=== PATIENT | female | born 1960 | race Caucasian/White ===

== ENCOUNTER 2017-03-12 19:09 | Inpatient (IN) | payer OTHER ==
[~2017-03-12] VITALS: Ht 177.8 cm; Wt 223.0 kg
[2017-03-13 06:22] VITALS: BP 126/56
[2017-03-13 07:49] VITALS: BP 130/62
[2017-03-13 11:21] VITALS: BP 120/70
[2017-03-13 16:01] VITALS: BP 136/68
[2017-03-13] MEDS ORDERED: NOVOLOG 10100 UNITS/ SC (16:16)
[2017-03-13] MEDS ORDERED: POLYETHYLENE GL17 GM PO (16:17)
[2017-03-13] MEDS ORDERED: POTASSIUM CHLO20 ME2 PO (16:18)
[2017-03-13] MEDS ORDERED: SENEXON-S TABL1 EACH PO (16:19)
[2017-03-13] MEDS ORDERED: DIOVAN320 MG PO (16:19)
[2017-03-13] MEDS ORDERED: MORPHINE SULFAT30 M2 PO (16:21)
[2017-03-13] MEDS ORDERED: BISAC-EVAC10 MG PR (16:22)
[2017-03-13] MEDS ORDERED: TYLENOL EXTRA500 MG PO (16:22)
[2017-03-13] MEDS ORDERED: BACLOFEN10 MG PO (16:25)
[2017-03-13] MEDS ORDERED: OXYCODONE HCL10 MG PO (16:25)
[2017-03-13] MEDS ORDERED: LASIX20 MG PO (16:27)
[2017-03-13] MEDS ORDERED: NEURONTIN100 MG PO (16:27)
[2017-03-13] MEDS ORDERED: GLUCOPHAGE500 MG PO (16:28)
[2017-03-13] MEDS ORDERED: PHILLIPS'400 MG/5 M PO (16:42)
[2017-03-13] MEDS ORDERED: FLEET ENEMA-AD118 ML PR (16:43)
[2017-03-13] MEDS ORDERED: DULCOLAX10 MG PR (16:50)
[2017-03-13] MEDS ORDERED: LEVEMIR FL100 UNIT/1 SC (16:52)
[2017-03-13] MEDS ORDERED: HUMALOG100 UNIT/1 SC (16:52)
[2017-03-13] MEDS ORDERED: PROAIR HFA8.5 GM IH (16:53)
[2017-03-13] MEDS ORDERED: DUONEB 2.5-0.5 M3 ML IPPB (16:54)
[2017-03-13 18:34] LABS: BASOPHIL (%) 0.4 % (0-1); EOSINOPHIL (%) 0.8 % (0-5); EOSINOPHIL COUNT 0.1 K/uL (0-0.3); HEMATOCRIT 42.1 % (36.0-46.0); HEMOGLOBIN 12.1 G/DL (11.9-15.5); IMMATURE GRANULOCYTE (%) 0.4 % (0.0-0.7); LYMPHOCYTE (%) 9.8 % (15-42); LYMPHOCYTE COUNT 0.8 K/uL (1.0-2.8); MCH 27.9 PG (29.0-34.0); MCHC 28.7 G/DL (30.0-36.0); MONOCYTE (%) 4.6 % (3-12); MONOCYTE COUNT 0.4 K/uL (0-0.8); NEUTROPHIL COUNT 6.5 K/uL (1.8-6.4); PLATELET COUNT 174 K/uL (156-360); RBC DIS.WIDTH-CV 15.9 % (11.8-14.6); RBC DIS.WIDTH-SD 56.9 % (39-53); RED BLOOD COUNT 4.34 M/uL (3.80-5.20); WHITE BLOOD COUNT 7.7 K/uL (4.1-10.2)
[2017-03-13 19:01] LABS: CHLORIDE 92 MEQ/L (99-109); CREATININE 0.5 MG/DL (0.6-1.3); GFR ESTIMATE (CALCULATED) > 59 mL/min/; GLUCOSE 237 mg/dL (70-99); POTASSIUM 4.2 MEQ/L (3.7-5.4); SODIUM 141 MEQ/L (136-147); UREA NITROGEN (BUN) 14 mg/dL (9-23)
[2017-03-13 19:03] LABS: CARBON DIOXIDE (BICARBONATE) > 40.0 MEQ/L (20-31)
[2017-03-13 19:39] VITALS: BP 132/80; BP 185/102
[2017-03-13 20:04] LABS: BASE EXCESS 23.8 mEq/L (-3 to +3); BICARBONATE 53.2 mEq/L (22-26); COMMENTS - BLOOD GASES C+A+; METHEMOGLOBIN 1.9 % (0-1.5); PCO2 82 mm Hg (35-45); PO2 55 mm Hg (80-100); SITE RR; pH 7.42 (7.35-7.45)
[2017-03-13 20:05] LABS: DEVICE HFNC; O2 FLOW 7 L/MIN; TOTAL RESP RATE 14 resp/min
[2017-03-14 00:19] VITALS: BP 140/70
[2017-03-14 03:45] VITALS: BP 139/76
[2017-03-14 07:07] VITALS: BP 107/56
[2017-03-14 11:13] VITALS: BP 141/80
[2017-03-14 15:15] VITALS: BP 144/71
[2017-03-14 19:35] VITALS: BP 126/62
[2017-03-15 00:03] VITALS: BP 113/59
[2017-03-15 04:29] VITALS: BP 110/54
[2017-03-15 07:13] VITALS: BP 123/71
[2017-03-15 11:31] VITALS: BP 143/81
[2017-03-15 15:43] VITALS: BP 165/89
[2017-03-15 19:50] VITALS: BP 164/84
[2017-03-16 04:06] VITALS: BP 156/82
[2017-03-16 06:41] LABS: CHLORIDE 89 MEQ/L (99-109); CREATININE 0.5 MG/DL (0.6-1.3); GFR ESTIMATE (CALCULATED) > 59 mL/min/; GLUCOSE 173 mg/dL (70-99); POTASSIUM 3.8 MEQ/L (3.7-5.4); SODIUM 145 MEQ/L (136-147); UREA NITROGEN (BUN) 12 mg/dL (9-23)
[2017-03-16 06:42] LABS: CARBON DIOXIDE (BICARBONATE) > 40.0 MEQ/L (20-31)
[2017-03-16 08:02] VITALS: BP 138/72
[2017-03-16 09:28] LABS: BASE EXCESS 32.3 mEq/L (-3 to +3); BICARBONATE 64.7 mEq/L (22-26); CARBOXY HGB 3.5 % (0-5); METHEMOGLOBIN 1.4 % (0-1.5); PCO2 112 mm Hg (35-45); PO2 59 mm Hg (80-100); pH 7.37 (7.35-7.45)
[2017-03-16 09:29] LABS: COMMENTS - BLOOD GASES A+C+; DEVICE NC; O2 FLOW 5 L/MIN; SITE LR; TOTAL RESP RATE 10 resp/min
[2017-03-16 11:11] VITALS: BP 153/79
[2017-03-16 15:50] VITALS: BP 153/79
[2017-03-16 20:14] VITALS: BP 158/92
[2017-03-16 23:39] VITALS: BP 169/89
[2017-03-17 04:47] VITALS: BP 175/92
[2017-03-17 05:19] VITALS: BP 156/87
[2017-03-17 07:40] VITALS: BP 144/83
[2017-03-17 08:07] LABS: BASE EXCESS 28.2 mEq/L (-3 to +3); BICARBONATE 59.3 mEq/L (22-26); CARBOXY HGB 3.3 % (0-5); METHEMOGLOBIN 1.5 % (0-1.5); PO2 66 mm Hg (80-100); pH 7.39 (7.35-7.45)
[2017-03-17 08:08] LABS: COMMENTS - BLOOD GASES A+C+; DEVICE NC; O2 FLOW 5 L/MIN; PCO2 98 mm Hg (35-45); SITE LR; TOTAL RESP RATE 18 resp/min
[2017-03-17 11:20] VITALS: BP 168/88
[2017-03-17 14:53] VITALS: BP 152/84
[2017-03-17 23:20] VITALS: BP 159/90
[2017-03-18 08:09] VITALS: BP 153/86
[2017-03-18] MEDS ORDERED: LEVOFLOXACIN750 MG PO (13:48)
[2017-03-18] MEDS ORDERED: GABAPENTIN300 MG PO (13:48)
[2017-03-18] MEDS ORDERED: ADVAIR HFA120 INHAL1 IH (13:48)
[2017-03-18] MEDS ORDERED: SKELAXIN800 MG PO (13:48)
[2017-03-18] MEDS ORDERED: AMITRIPTYLINE H10 MG PO (13:48)
[2017-03-18] MEDS ORDERED: OXYCODONE-APAP1 EACH PO (13:54)
[2017-03-18 15:44] VITALS: BP 166/82
== END 2017-03-18 19:05 | DRG 535 ==
LOC: EME → EDBD 19:09 → EME 19:09 → 3EAST 03-13 04:17 → EDOF 03-13 04:17 → ENRESERV 03-13 04:18 → 3EAST 03-13 05:53
PROVIDERS: Internal Medicine; Internal Medicine Pulmonary Disease
DX: S72.012A Unspecified intracapsular fracture of left femur, initial encounter for closed fracture (principal); W06.XXXA Fall from bed, initial encounter; E66.2 Morbid (severe) obesity with alveolar hypoventilation; J96.11 Chronic respiratory failure with hypoxia; J96.12 Chronic respiratory failure with hypercapnia; J44.0 Chronic obstructive pulmonary disease with (acute) lower respiratory infection; J18.9 Pneumonia, unspecified organism; E11.9 Type 2 diabetes mellitus without complications; G89.4 Chronic pain syndrome; I10 Essential (primary) hypertension; Z74.01 Bed confinement status; M81.0 Age-related osteoporosis without current pathological fracture; M19.90 Unspecified osteoarthritis, unspecified site; M54.42 Lumbago with sciatica, left side; Z68.45 Body mass index [BMI] 70 or greater, adult; R26.9 Unspecified abnormalities of gait and mobility; Z87.891 Personal history of nicotine dependence; I27.20 Pulmonary hypertension, unspecified; E87.4 Mixed disorder of acid-base balance
CPT/HCPCS: 36600; 71010; 73502; 73560; 73600; 73630; 80048; 82803; 82948; 85025; 90686; 93005; 93306; 93970; 94640; 94640 76; 94660; 94667; 94668; 94760; 94799; 99202; 99281; 99285; J1650; J1815; J2270; J7512

== ENCOUNTER 2017-06-21 16:19 | Inpatient (IN) | payer OTHER ==
[~2017-06-21] VITALS: Ht 177.8 cm; Wt 210.0 kg
[~2017-06-21 16:19] MED LIST: ADVAIR HFA120 INHAL1 IH; AMITRIPTYLINE H10 MG PO; BACLOFEN10 MG PO; BISAC-EVAC10 MG PR; DIOVAN320 MG PO; DULCOLAX10 MG PR; DUONEB 2.5-0.5 M3 ML IPPB; FLEET ENEMA-AD118 ML PR; GABAPENTIN300 MG PO; GLUCOPHAGE500 MG PO; HUMALOG100 UNIT/1 SC; LANTUS 3 M100 UNITS1 SC; LEVOFLOXACIN750 MG PO; MORPHINE SULFAT30 M2 PO; NEURONTIN100 MG PO; NOVOLOG 10100 UNITS/ SC; OXYCODONE HCL10 MG PO; OXYCODONE-APAP1 EACH PO; PHILLIPS'400 MG/5 M PO; POLYETHYLENE GL17 GM PO; POTASSIUM CHLO20 ME2 PO; PROAIR HFA8.5 GM IH; SENEXON-S TABL1 EACH PO; SKELAXIN800 MG PO; TYLENOL EXTRA500 MG PO
[2017-06-21 17:52] LABS: BASOPHIL (%) 0.5 % (0-1); EOSINOPHIL (%) 1.3 % (0-5); EOSINOPHIL COUNT 0.1 K/uL (0-0.3); HEMATOCRIT 38.4 % (36.0-46.0); HEMOGLOBIN 12.1 G/DL (11.9-15.5); IMMATURE GRANULOCYTE (%) 0.9 % (0.0-0.7); LYMPHOCYTE (%) 21.3 % (15-42); LYMPHOCYTE COUNT 1.7 K/uL (1.0-2.8); MCH 29.2 PG (29.0-34.0); MCHC 31.5 G/DL (30.0-36.0); MCV 92.8 FL (83-99); MONOCYTE (%) 8.3 % (3-12); MONOCYTE COUNT 0.7 K/uL (0-0.8); NEUTROPHIL (%) 67.7 % (45-76); NEUTROPHIL COUNT 5.3 K/uL (1.8-6.4); PLATELET COUNT 221 K/uL (156-360); RBC DIS.WIDTH-CV 16.1 % (11.8-14.6); RED BLOOD COUNT 4.14 M/uL (3.80-5.20); WHITE BLOOD COUNT 7.8 K/uL (4.1-10.2)
[2017-06-21 17:55] LABS: CHLORIDE 88 mEq/L (99-109); POTASSIUM 4.3 mEq/L (3.7-5.4); SODIUM 140 mEq/L (136-147)
[2017-06-21 17:57] LABS: GLUCOSE 230 mg/dL (70-99)
[2017-06-21 18:01] LABS: CREATININE 0.9 mg/dL (0.6-1.3); GFR ESTIMATE (CALCULATED) > 59 mL/min/
[2017-06-21 18:02] LABS: UREA NITROGEN (BUN) 37 mg/dL (9-23)
[2017-06-21 18:08] LABS: TROP-I INTERPRETATION NEGATIVE; TROPONIN-I 0.02 ng/mL (0.0-0.30)
[2017-06-21 18:11] LABS: CARBON DIOXIDE (BICARBONATE) > 40.0 mEq/L (20-31)
[2017-06-21] MEDS ORDERED: DOXYCYCLINE HY100 MG PO (19:26)
[2017-06-21] MEDS ORDERED: GABAPENTIN400 MG PO (21:46)
[2017-06-21] MEDS ORDERED: DUONEB 2.5-0.5 M3 ML AEROSOL (21:47)
[2017-06-21] MEDS ORDERED: HYDRALAZINE HCL25 MG PO (21:47)
[2017-06-21] MEDS ORDERED: ASPERCREME1 EACH TP (21:48)
[2017-06-21] MEDS ORDERED: CYMBALTA30 MG PO (21:49)
[2017-06-21] MEDS ORDERED: BACLOFEN10 MG PO (21:49)
[2017-06-21] MEDS ORDERED: LITE COAT ASPI325 M1 PO (21:49)
[2017-06-21] MEDS ORDERED: LASIX80 MG PO (21:50)
[2017-06-21] MEDS ORDERED: METOLAZONE5 MG PO (21:51)
[2017-06-21] MEDS ORDERED: NALOXONE H0.4 MG/12 IV (21:53)
[2017-06-21] MEDS ORDERED: ZINC OXIDE56.7 GM TP ×2 (21:54→21:55)
[2017-06-21] MEDS ORDERED: ZGUARD TP (21:57)
[2017-06-21] MEDS ORDERED: BETAMETHASONE TP (21:57)
[2017-06-22 07:36] LABS: BASOPHIL (%) 0.6 % (0-1); BASOPHIL COUNT 0.1 K/uL (0-0.1); EOSINOPHIL (%) 2.3 % (0-5); EOSINOPHIL COUNT 0.2 K/uL (0-0.3); HEMATOCRIT 40.6 % (36.0-46.0); HEMOGLOBIN 12.4 G/DL (11.9-15.5); IMMATURE GRANULOCYTE (%) 0.9 % (0.0-0.7); LYMPHOCYTE (%) 27.1 % (15-42); LYMPHOCYTE COUNT 2.1 K/uL (1.0-2.8); MCHC 30.5 G/DL (30.0-36.0); MCV 94.9 FL (83-99); MONOCYTE COUNT 0.6 K/uL (0-0.8); NEUTROPHIL (%) 61.1 % (45-76); NEUTROPHIL COUNT 4.8 K/uL (1.8-6.4); PLATELET COUNT 207 K/uL (156-360); RBC DIS.WIDTH-CV 16.4 % (11.8-14.6); RBC DIS.WIDTH-SD 56.7 % (39-53); RED BLOOD COUNT 4.28 M/uL (3.80-5.20); WHITE BLOOD COUNT 7.9 K/uL (4.1-10.2)
[2017-06-22 08:22] LABS: ALBUMIN 3.8 G/DL (3.2-4.8); ALKALINE PHOSPHATASE 66 IU/L (3-129); ALT (GPT) 15 IU/L (3-49); AST (GOT) 12 IU/L (2-34); CHLORIDE 91 MEQ/L (99-109); CREATININE 0.8 MG/DL (0.6-1.3); GFR ESTIMATE (CALCULATED) > 59 mL/min/; GLUCOSE 222 mg/dL (70-99); POTASSIUM 3.8 MEQ/L (3.7-5.4); SODIUM 140 MEQ/L (136-147); TOTAL BILIRUBIN 0.3 MG/DL (0.0-1.0); TOTAL PROTEIN 6.5 G/DL (6.4-8.3); UREA NITROGEN (BUN) 27 mg/dL (9-23)
[2017-06-22 08:23] LABS: CARBON DIOXIDE (BICARBONATE) > 40.0 MEQ/L (20-31)
[2017-06-22 08:46] LABS: BASE EXCESS 23.3 mEq/L (-3 to +3); BICARBONATE 53.8 mEq/L (22-26); METHEMOGLOBIN 0.9 % (0-1.5); PO2 67 mm Hg (80-100); pH 7.38 (7.35-7.45)
[2017-06-22 08:47] LABS: COMMENTS - BLOOD GASES A+C+; DEVICE NC; O2 FLOW 6 L/MIN; PCO2 91 mm Hg (35-45); SITE RR
[2017-06-22 18:00] VITALS: BP 129/82
[2017-06-22 18:40] LABS: TROP-I INTERPRETATION NEGATIVE; TROPONIN-I 0.03 ng/mL (0.0-0.30)
[2017-06-22 19:54] VITALS: BP 129/75
[2017-06-22 23:13] LABS: TROP-I INTERPRETATION NEGATIVE; TROPONIN-I 0.01 ng/mL (0.0-0.30)
[2017-06-23 00:01] VITALS: BP 133/71
[2017-06-23 03:53] VITALS: BP 143/77
[2017-06-23 06:43] LABS: BASOPHIL (%) 0.5 % (0-1); EOSINOPHIL (%) 1.9 % (0-5); EOSINOPHIL COUNT 0.2 K/uL (0-0.3); HEMATOCRIT 40.9 % (36.0-46.0); HEMOGLOBIN 11.9 G/DL (11.9-15.5); IMMATURE GRANULOCYTE (%) 0.8 % (0.0-0.7); LYMPHOCYTE (%) 21.7 % (15-42); LYMPHOCYTE COUNT 1.7 K/uL (1.0-2.8); MCH 27.9 PG (29.0-34.0); MCHC 29.1 G/DL (30.0-36.0); MONOCYTE (%) 7.5 % (3-12); MONOCYTE COUNT 0.6 K/uL (0-0.8); NEUTROPHIL (%) 67.6 % (45-76); NEUTROPHIL COUNT 5.3 K/uL (1.8-6.4); PLATELET COUNT 213 K/uL (156-360); RBC DIS.WIDTH-CV 16.3 % (11.8-14.6); RBC DIS.WIDTH-SD 57.5 % (39-53); RED BLOOD COUNT 4.26 M/uL (3.80-5.20); WHITE BLOOD COUNT 7.8 K/uL (4.1-10.2)
[2017-06-23 07:01] LABS: TROP-I INTERPRETATION NEGATIVE; TROPONIN-I 0.03 ng/mL (0.0-0.30)
[2017-06-23 07:10] LABS: ALBUMIN 3.4 G/DL (3.2-4.8); ALKALINE PHOSPHATASE 69 IU/L (3-129); ALT (GPT) 13 IU/L (3-49); AST (GOT) 12 IU/L (2-34); CHLORIDE 91 MEQ/L (99-109); CREATININE 0.9 MG/DL (0.6-1.3); GFR ESTIMATE (CALCULATED) > 59 mL/min/; GLUCOSE 294 mg/dL (70-99); POTASSIUM 4.2 MEQ/L (3.7-5.4); SODIUM 141 MEQ/L (136-147); TOTAL PROTEIN 6.1 G/DL (6.4-8.3); UREA NITROGEN (BUN) 25 mg/dL (9-23)
[2017-06-23 07:20] LABS: CARBON DIOXIDE (BICARBONATE) > 40.0 MEQ/L (20-31); TOTAL BILIRUBIN 0.4 MG/DL (0.0-1.0)
[2017-06-23 07:30] VITALS: BP 102/50
[2017-06-23 11:58] VITALS: BP 147/73
[2017-06-23 16:20] VITALS: BP 130/71
== END 2017-06-23 19:41 | DRG 189 ==
LOC: EME → EDBD 16:19 → EME 16:19 → EDOF 22:24 → ENRESERV 22:26 → 2EAST 06-22 09:11 → EDOF 06-22 09:11 → ENRESERV 06-22 12:38 → 5WEST 06-22 13:47 → ENRESERV 06-22 14:34 → EDOF 06-22 14:41 → ENRESERV 06-22 14:49 → 2EAST 06-22 17:54
PROVIDERS: Emergency Medicine; Hospitalist; Internal Medicine; Nurse Practitioner Adult Health
PROC: 5A09357 Assistance with Respiratory Ventilation, Less than 24 Consecutive Hours, Continuous Positive Airway Pressure (ICD-10-PCS; principal; 2017-06-22)
DX: J96.21 Acute and chronic respiratory failure with hypoxia (principal); J96.22 Acute and chronic respiratory failure with hypercapnia; R55 Syncope and collapse; E66.2 Morbid (severe) obesity with alveolar hypoventilation; G47.31 Primary central sleep apnea; J44.9 Chronic obstructive pulmonary disease, unspecified; E87.2 Acidosis; E86.0 Dehydration; I11.0 Hypertensive heart disease with heart failure; I50.32 Chronic diastolic (congestive) heart failure; E11.9 Type 2 diabetes mellitus without complications; E78.5 Hyperlipidemia, unspecified; G89.4 Chronic pain syndrome; I25.10 Atherosclerotic heart disease of native coronary artery without angina pectoris; I27.20 Pulmonary hypertension, unspecified; G43.909 Migraine, unspecified, not intractable, without status migrainosus; Z68.44 Body mass index [BMI] 60.0-69.9, adult; Z74.01 Bed confinement status; Z79.82 Long term (current) use of aspirin; Z86.73 Personal history of transient ischemic attack (TIA), and cerebral infarction without residual deficits; Z79.4 Long term (current) use of insulin; Z87.891 Personal history of nicotine dependence; Z99.81 Dependence on supplemental oxygen
CPT/HCPCS: 36415; 36600; 71045; 78582; 80048; 80048 91; 80053; 80076; 81003; 82803; 82948; 84484; 85025; 85379; 93005; 93880; 94640; 94640 76; 94660; 94799; 99202; A9540; A9567; G0378; J1650; J1815; J2060; J7030; J7040

== ENCOUNTER 2017-07-02 21:19 | Inpatient (IN) | payer OTHER ==
[~2017-07-02] VITALS: Ht 177.8 cm; Wt 205.0 kg
[~2017-07-02 21:19] MED LIST changes: +ASPERCREME1 EACH TP; +BETAMETHASONE TP; +CYMBALTA30 MG PO; +DOXYCYCLINE HY100 MG PO; +DUONEB 2.5-0.5 M3 ML AEROSOL; +GABAPENTIN400 MG PO; +HYDRALAZINE HCL25 MG PO; +LASIX80 MG PO; +LITE COAT ASPI325 M1 PO; +METOLAZONE5 MG PO; +NALOXONE H0.4 MG/12 IV; +ZGUARD TP; +ZINC OXIDE56.7 GM TP
[2017-07-02 23:02] LABS: HEMATOCRIT 40.7 % (36.0-46.0); HEMOGLOBIN 12.2 G/DL (11.9-15.5); MCH 29.7 PG (29.0-34.0); PLATELET COUNT 232 K/uL (156-360); RBC DIS.WIDTH-CV 15.8 % (11.8-14.6); RBC DIS.WIDTH-SD 57.1 % (39-53); RED BLOOD COUNT 4.11 M/uL (3.80-5.20); WHITE BLOOD COUNT 9.4 K/uL (4.1-10.2)
[2017-07-02 23:04] LABS: CARBON DIOXIDE (BICARBONATE) > 40.0 MEQ/L (20-31); VENOUS PCO2 93 mm Hg (41-51)
[2017-07-02 23:14] LABS: ALBUMIN 3.9 g/dL (3.2-4.8); CHLORIDE 92 mEq/L (99-109); POTASSIUM 4.4 mEq/L (3.7-5.4); SODIUM 139 mEq/L (136-147)
[2017-07-02 23:17] LABS: GLUCOSE 179 mg/dL (70-99); TOTAL PROTEIN 7.2 g/dL (6.4-8.3)
[2017-07-02 23:19] LABS: TOTAL BILIRUBIN 0.4 mg/dL (0.0-1.0)
[2017-07-02 23:20] LABS: ALKALINE PHOSPHATASE 87 IU/L (3-129); GFR ESTIMATE (CALCULATED) 25 mL/min/
[2017-07-02 23:21] LABS: CREATININE 2.2 mg/dL (0.6-1.3)
[2017-07-02 23:22] LABS: AST (GOT) 17 IU/L (2-34)
[2017-07-02 23:23] LABS: ALT (GPT) 20 IU/L (3-49); UREA NITROGEN (BUN) 57 mg/dL (9-23)
[2017-07-02 23:24] LABS: LIPASE 24 U/L (1.0-51.0)
[2017-07-02 23:26] LABS: TROP-I INTERPRETATION NEGATIVE; TROPONIN-I 0.04 ng/mL (0.0-0.30)
[2017-07-02 23:57] LABS: BICARBONATE 39.3 mEq/L (22-26); CARBOXY HGB 2.6 % (0-5); COMMENTS - BLOOD GASES A+C+; DEVICE NC; O2 FLOW 5 L/MIN; PCO2 78 mm Hg (35-45); PO2 69 mm Hg (80-100); SITE RR; TOTAL RESP RATE 24 resp/min; pH 7.31 (7.35-7.45)
[2017-07-03] VITALS (12 sets, daily range): BP systolic 82–183; BP diastolic 39–101
[2017-07-03 07:12] LABS: CHLORIDE 94 MEQ/L (99-109); CREATININE 1.8 MG/DL (0.6-1.3); GFR ESTIMATE (CALCULATED) 31 mL/min/; GLUCOSE 248 mg/dL (70-99); POTASSIUM 4.7 MEQ/L (3.7-5.4); SODIUM 138 MEQ/L (136-147); UREA NITROGEN (BUN) 57 mg/dL (9-23)
[2017-07-03 10:05] LABS: BASE EXCESS 9.2 mEq/L (-3 to +3); BICARBONATE 39.8 mEq/L (22-26); CARBOXY HGB 2.1 % (0-5); METHEMOGLOBIN 1.6 % (0-1.5); PO2 56 mm Hg (80-100)
[2017-07-03 10:06] LABS: PCO2 95 mm Hg (35-45); SITE LR
[2017-07-03 10:07] LABS: COMMENTS - BLOOD GASES A+C+; DEVICE HFNC; O2 FLOW 12 L/MIN; pH 7.23 (7.35-7.45)
[2017-07-03 12:20] LABS: BASE EXCESS 8.3 mEq/L (-3 to +3); BICARBONATE 39.5 mEq/L (22-26); CARBOXY HGB 1.9 % (0-5); METHEMOGLOBIN 1.3 % (0-1.5); PCO2 101 mm Hg (35-45); PO2 111 mm Hg (80-100)
[2017-07-03 12:21] LABS: COMMENTS - BLOOD GASES A+C+; DEVICE HFNC; O2 FLOW 15 L/MIN; SITE LR; TOTAL RESP RATE 15 resp/min
[2017-07-03 14:39] LABS: APPEARANCE CLOUDY ((CLEAR)); BILIRUBIN NEGATIVE; BLOOD NEGATIVE; COLOR YELLOW ((YELLOW)); GLUCOSE (STRIP) NEGATIVE; KETONES NEGATIVE; LEUKOCYTES MODERATE; NITRITE NEGATIVE; PROTEIN (STRIP) NEGATIVE; SPECIFIC GRAVITY 1.013 (1.000-1.030); UROBILINOGEN 0.2 MG/DL (0.2-1.0)
[2017-07-03 14:43] LABS: BACTERIA NONE SEEN /HPF; EPITHELIAL CELLS NONE SEEN /HPF; MUCUS NONE SEEN /LPF; RED BLOOD CELLS 0-5 /HPF (0-5); UCUL ADDED? NO; WHITE BLOOD CELLS 0-5 /HPF (0-5)
[2017-07-03 16:06] LABS: BASE EXCESS 10.9 mEq/L (-3 to +3); BICARBONATE 38.7 mEq/L (22-26); COMMENTS - BLOOD GASES A+C+; METHEMOGLOBIN 1.6 % (0-1.5); PCO2 67 mm Hg (35-45); PO2 61 mm Hg (80-100); SITE RR; pH 7.37 (7.35-7.45)
[2017-07-03 16:07] LABS: DEVICE VENT; FI02 100 %; MECHANICAL RATE 16 resp/min; MODE AC; PEEP 5 CM/H20; TIDAL VOLUME 500 ML; TOTAL RESP RATE 16 resp/min
[2017-07-03 16:22] LABS: BASOPHIL (%) 0.2 % (0-1); EOSINOPHIL COUNT 0.1 K/uL (0-0.3); HEMATOCRIT 40.2 % (36.0-46.0); HEMOGLOBIN 11.9 G/DL (11.9-15.5); IMMATURE GRANULOCYTE (%) 0.6 % (0.0-0.7); LYMPHOCYTE (%) 23.4 % (15-42); LYMPHOCYTE COUNT 2.5 K/uL (1.0-2.8); MCHC 29.6 G/DL (30.0-36.0); MONOCYTE (%) 4.8 % (3-12); MONOCYTE COUNT 0.5 K/uL (0-0.8); NEUTROPHIL COUNT 7.4 K/uL (1.8-6.4); PLATELET COUNT 186 K/uL (156-360); RBC DIS.WIDTH-CV 15.9 % (11.8-14.6); RBC DIS.WIDTH-SD 57.3 % (39-53); WHITE BLOOD COUNT 10.5 K/uL (4.1-10.2)
[2017-07-03 16:37] LABS: ALBUMIN 3.6 G/DL (3.2-4.8); CHLORIDE 95 MEQ/L (99-109); POTASSIUM 5.4 MEQ/L (3.7-5.4); SODIUM 136 MEQ/L (136-147); TOTAL BILIRUBIN 0.4 MG/DL (0.0-1.0)
[2017-07-03 16:43] LABS: ALKALINE PHOSPHATASE 72 IU/L (3-129); ALT (GPT) 15 IU/L (3-49); AST (GOT) 19 IU/L (2-34); CREATININE 1.7 MG/DL (0.6-1.3); GFR ESTIMATE (CALCULATED) 33 mL/min/; GLUCOSE 178 mg/dL (70-99); TOTAL PROTEIN 6.7 G/DL (6.4-8.3); UREA NITROGEN (BUN) 56 mg/dL (9-23)
[2017-07-03 17:08] LABS: INTER. NORMALIZED RATIO 1.1
[2017-07-03 17:11] LABS: PTT 31.8 SEC (25-37)
[2017-07-04] VITALS (18 sets, daily range): BP systolic 106–181; BP diastolic 54–106
[2017-07-04 01:56] LABS: INTER. NORMALIZED RATIO 1.1
[2017-07-04 01:59] LABS: PTT 35.8 SEC (25-37)
[2017-07-04 05:58] LABS: BASOPHIL (%) 0.2 % (0-1); EOSINOPHIL (%) 0 % (0-5); HEMATOCRIT 36.5 % (36.0-46.0); HEMOGLOBIN 11.2 G/DL (11.9-15.5); IMMATURE GRANULOCYTE (%) 0.7 % (0.0-0.7); LYMPHOCYTE (%) 12.7 % (15-42); LYMPHOCYTE COUNT 1.2 K/uL (1.0-2.8); MCH 28.6 PG (29.0-34.0); MCHC 30.7 G/DL (30.0-36.0); MONOCYTE (%) 2.7 % (3-12); MONOCYTE COUNT 0.3 K/uL (0-0.8); NEUTROPHIL (%) 83.7 % (45-76); NEUTROPHIL COUNT 7.7 K/uL (1.8-6.4); PLATELET COUNT 239 K/uL (156-360); RBC DIS.WIDTH-CV 15.8 % (11.8-14.6); RBC DIS.WIDTH-SD 54.1 % (39-53); RED BLOOD COUNT 3.91 M/uL (3.80-5.20); WHITE BLOOD COUNT 9.1 K/uL (4.1-10.2)
[2017-07-04 06:09] LABS: MCV 93.4 FL (83-99)
[2017-07-04 06:22] LABS: CHLORIDE 97 MEQ/L (99-109); GFR ESTIMATE (CALCULATED) > 59 mL/min/; MAGNESIUM 2.1 mg/dl (1.3-2.7); PHOSPHORUS 1.7 mg/dL (2.5-4.9); POTASSIUM 4.8 MEQ/L (3.7-5.4); SODIUM 140 MEQ/L (136-147); UREA NITROGEN (BUN) 38 mg/dL (9-23)
[2017-07-04 06:23] LABS: GLUCOSE 286 mg/dL (70-99)
[2017-07-04 08:50] LABS: INTER. NORMALIZED RATIO 1.1
[2017-07-04 08:59] LABS: PTT 56.5 SEC (25-37)
[2017-07-04 12:04] LABS: BASE EXCESS 13.5 mEq/L (-3 to +3); BICARBONATE 39.6 mEq/L (22-26); CARBOXY HGB 1.6 % (0-5); METHEMOGLOBIN 1.4 % (0-1.5); PO2 54 mm Hg (80-100); pH 7.45 (7.35-7.45)
[2017-07-04 12:05] LABS: COMMENTS - BLOOD GASES C+; DEVICE VENT; FI02 100 %; MECHANICAL RATE 16 resp/min; MODE AC; PCO2 57 mm Hg (35-45); SITE RR; TOTAL RESP RATE 16 resp/min
[2017-07-04 12:06] LABS: PEEP 5 CM/H20; TIDAL VOLUME 500 ML
[2017-07-04 16:56] LABS: BASOPHIL (%) 0.4 % (0-1); EOSINOPHIL (%) 0.1 % (0-5); HEMATOCRIT 35.3 % (36.0-46.0); HEMOGLOBIN 10.7 G/DL (11.9-15.5); LYMPHOCYTE (%) 14.6 % (15-42); MCH 28.5 PG (29.0-34.0); MCHC 30.3 G/DL (30.0-36.0); MCV 93.9 FL (83-99); MONOCYTE (%) 5.5 % (3-12); MONOCYTE COUNT 0.4 K/uL (0-0.8); NEUTROPHIL (%) 78.4 % (45-76); NEUTROPHIL COUNT 5.6 K/uL (1.8-6.4); PLATELET COUNT 212 K/uL (156-360); RBC DIS.WIDTH-CV 15.9 % (11.8-14.6); RBC DIS.WIDTH-SD 54.3 % (39-53); RED BLOOD COUNT 3.76 M/uL (3.80-5.20); WHITE BLOOD COUNT 7.1 K/uL (4.1-10.2)
[2017-07-04 19:58] LABS: HEMATOCRIT 33.4 % (36.0-46.0); HEMOGLOBIN 10.6 G/DL (11.9-15.5); MCV 93.3 FL (83-99)
[2017-07-05] VITALS (20 sets, daily range): BP systolic 120–179; BP diastolic 65–114
[2017-07-05 00:30] LABS: HEMATOCRIT 35.5 % (36.0-46.0); HEMOGLOBIN 11.1 G/DL (11.9-15.5); MCV 93.7 FL (83-99)
[2017-07-05 05:27] LABS: BASE EXCESS 11.1 mEq/L (-3 to +3); BICARBONATE 36.8 mEq/L (22-26); CARBOXY HGB 1.5 % (0-5); METHEMOGLOBIN 1.2 % (0-1.5); PCO2 53 mm Hg (35-45); PO2 54 mm Hg (80-100); SITE LR; pH 7.45 (7.35-7.45)
[2017-07-05 05:28] LABS: COMMENTS - BLOOD GASES C+; DEVICE VENT; FI02 80 %; MECHANICAL RATE 16 resp/min; MODE ACVC; PEEP 8 CM/H20; TIDAL VOLUME 500 ML; TOTAL RESP RATE 16 resp/min
[2017-07-05 06:08] LABS: BASOPHIL (%) 0.5 % (0-1); EOSINOPHIL (%) 0.2 % (0-5); HEMATOCRIT 34.8 % (36.0-46.0); HEMOGLOBIN 10.9 G/DL (11.9-15.5); IMMATURE GRANULOCYTE (%) 1.1 % (0.0-0.7); LYMPHOCYTE (%) 16.9 % (15-42); MCH 29.5 PG (29.0-34.0); MCHC 31.3 G/DL (30.0-36.0); MCV 94.3 FL (83-99); MONOCYTE (%) 6.5 % (3-12); MONOCYTE COUNT 0.4 K/uL (0-0.8); NEUTROPHIL (%) 74.8 % (45-76); NEUTROPHIL COUNT 4.6 K/uL (1.8-6.4); PLATELET COUNT 217 K/uL (156-360); RBC DIS.WIDTH-CV 16.1 % (11.8-14.6); RBC DIS.WIDTH-SD 54.9 % (39-53); RED BLOOD COUNT 3.69 M/uL (3.80-5.20); WHITE BLOOD COUNT 6.2 K/uL (4.1-10.2)
[2017-07-05 06:35] LABS: ALBUMIN 3.1 G/DL (3.2-4.8); ALKALINE PHOSPHATASE 68 IU/L (3-129); ALT (GPT) 21 IU/L (3-49); AST (GOT) 20 IU/L (2-34); CHLORIDE 100 MEQ/L (99-109); CREATININE 0.7 MG/DL (0.6-1.3); GFR ESTIMATE (CALCULATED) > 59 mL/min/; GLUCOSE 237 mg/dL (70-99); SODIUM 142 MEQ/L (136-147); TOTAL BILIRUBIN 0.4 MG/DL (0.0-1.0); TOTAL PROTEIN 6.1 G/DL (6.4-8.3); UREA NITROGEN (BUN) 25 mg/dL (9-23)
[2017-07-05 06:40] LABS: PHOSPHORUS 3.1 mg/dL (2.5-4.9)
[2017-07-05 10:30] LABS: HEMATOCRIT 35.8 % (36.0-46.0)
[2017-07-05 13:01] LABS: HEMATOCRIT 34.7 % (36.0-46.0); HEMOGLOBIN 10.8 G/DL (11.9-15.5); MCV 94.8 FL (83-99)
[2017-07-05 15:47] LABS: HEMATOCRIT 35.1 % (36.0-46.0); HEMOGLOBIN 10.7 G/DL (11.9-15.5); MCV 94.1 FL (83-99)
[2017-07-05 19:54] LABS: HEMATOCRIT 34.8 % (36.0-46.0); HEMOGLOBIN 10.7 G/DL (11.9-15.5); MCV 94.3 FL (83-99)
[2017-07-06] VITALS (21 sets, daily range): BP systolic 103–170; BP diastolic 67–113
[2017-07-06 00:47] LABS: HEMATOCRIT 37.1 % (36.0-46.0); HEMOGLOBIN 11.6 G/DL (11.9-15.5); MCV 93.9 FL (83-99)
[2017-07-06 05:02] LABS: HEMATOCRIT 36.7 % (36.0-46.0); HEMOGLOBIN 11.4 G/DL (11.9-15.5); MCV 95.3 FL (83-99)
[2017-07-06 05:28] LABS: ALBUMIN 3.3 g/dL (3.2-4.8); SODIUM 141 mEq/L (136-147)
[2017-07-06 05:30] LABS: GLUCOSE 262 mg/dL (70-99); MAGNESIUM 2.1 mg/dL (1.3-2.7)
[2017-07-06 05:33] LABS: CHLORIDE 102 mEq/L (99-109); TOTAL BILIRUBIN 0.3 mg/dL (0.0-1.0); TOTAL PROTEIN 5.8 g/dL (6.4-8.3)
[2017-07-06 05:34] LABS: ALKALINE PHOSPHATASE 73 IU/L (3-129); CREATININE 0.8 mg/dL (0.6-1.3); GFR ESTIMATE (CALCULATED) > 59 mL/min/
[2017-07-06 05:35] LABS: PHOSPHORUS 3.1 mg/dL (2.5-4.9); UREA NITROGEN (BUN) 21 mg/dL (9-23)
[2017-07-06 05:37] LABS: ALT (GPT) 38 IU/L (3-49)
[2017-07-06 05:41] LABS: AST (GOT) 27 IU/L (2-34)
[2017-07-06 06:26] LABS: TRIGLYCERIDES 204 MG/DL (Normal: <150)
[2017-07-06 10:49] LABS: BASE EXCESS 7.1 mEq/L (-3 to +3); CARBOXY HGB 1.5 % (0-5); METHEMOGLOBIN 1.1 % (0-1.5); PCO2 52 mm Hg (35-45); PO2 72 mm Hg (80-100); pH 7.41 (7.35-7.45)
[2017-07-06 10:50] LABS: COMMENTS - BLOOD GASES A+C+; DEVICE VENT; FI02 100 %; MECHANICAL RATE 16 resp/min; MODE AC/VC; PEEP 10 CM/H20; SITE LR; TIDAL VOLUME 500 ML; TOTAL RESP RATE 16 resp/min
[2017-07-06 13:32] LABS: HEMATOCRIT 38.9 % (36.0-46.0); HEMOGLOBIN 11.9 G/DL (11.9-15.5); MCV 96.3 FL (83-99)
[2017-07-06 17:54] LABS: HEMATOCRIT 37.6 % (36.0-46.0); HEMOGLOBIN 11.5 G/DL (11.9-15.5); MCV 96.2 FL (83-99)
[2017-07-07] VITALS (24 sets, daily range): BP systolic 111–176; BP diastolic 59–97
[2017-07-07 01:58] LABS: BASOPHIL (%) 0.4 % (0-1); EOSINOPHIL (%) 0.1 % (0-5); HEMATOCRIT 34.9 % (36.0-46.0); HEMOGLOBIN 11.1 G/DL (11.9-15.5); IMMATURE GRANULOCYTE (%) 1.3 % (0.0-0.7); LYMPHOCYTE (%) 5.6 % (15-42); LYMPHOCYTE COUNT 0.6 K/uL (1.0-2.8); MCH 29.8 PG (29.0-34.0); MCHC 31.8 G/DL (30.0-36.0); MCV 93.8 FL (83-99); MONOCYTE (%) 4.1 % (3-12); MONOCYTE COUNT 0.5 K/uL (0-0.8); NEUTROPHIL (%) 88.5 % (45-76); NEUTROPHIL COUNT 9.9 K/uL (1.8-6.4); PLATELET COUNT 212 K/uL (156-360); RBC DIS.WIDTH-CV 16.4 % (11.8-14.6); RBC DIS.WIDTH-SD 55.8 % (39-53); RED BLOOD COUNT 3.72 M/uL (3.80-5.20); WHITE BLOOD COUNT 11.2 K/uL (4.1-10.2)
[2017-07-07 02:01] LABS: HEMATOCRIT 34.7 % (36.0-46.0); HEMOGLOBIN 11.2 G/DL (11.9-15.5); MCV 93.3 FL (83-99)
[2017-07-07 02:19] LABS: ALBUMIN 3.4 g/dL (3.2-4.8); CHLORIDE 102 mEq/L (99-109); POTASSIUM 4.7 mEq/L (3.7-5.4); SODIUM 143 mEq/L (136-147)
[2017-07-07 02:20] LABS: MAGNESIUM 1.8 mg/dL (1.3-2.7)
[2017-07-07 02:22] LABS: GLUCOSE 224 mg/dL (70-99); TOTAL PROTEIN 5.8 g/dL (6.4-8.3)
[2017-07-07 02:24] LABS: TOTAL BILIRUBIN 0.3 mg/dL (0.0-1.0)
[2017-07-07 02:25] LABS: ALKALINE PHOSPHATASE 71 IU/L (3-129)
[2017-07-07 02:26] LABS: CREATININE 0.7 mg/dL (0.6-1.3); GFR ESTIMATE (CALCULATED) > 59 mL/min/
[2017-07-07 02:27] LABS: AST (GOT) 19 IU/L (2-34); UREA NITROGEN (BUN) 15 mg/dL (9-23)
[2017-07-07 02:28] LABS: ALT (GPT) 40 IU/L (3-49)
[2017-07-07 05:24] LABS: BASE EXCESS 7.6 mEq/L (-3 to +3); BICARBONATE 33.6 mEq/L (22-26); CARBOXY HGB 1.1 % (0-5); DEVICE VENT; METHEMOGLOBIN 1.5 % (0-1.5); PCO2 53 mm Hg (35-45); PO2 64 mm Hg (80-100); SITE RR; pH 7.41 (7.35-7.45)
[2017-07-07 05:25] LABS: FI02 90 %; MECHANICAL RATE 16 resp/min; MODE AC; PEEP 10 CM/H20; TIDAL VOLUME 500 ML; TOTAL RESP RATE 16 resp/min
[2017-07-07 09:42] LABS: HEMATOCRIT 37.7 % (36.0-46.0); HEMOGLOBIN 11.6 G/DL (11.9-15.5); MCV 94.3 FL (83-99)
[2017-07-07 13:35] LABS: COMMENTS - BLOOD GASES A+C+; SITE LR
[2017-07-07 13:36] LABS: CARBOXY HGB 1.6 % (0-5); DEVICE VENT; FI02 100 %; MECHANICAL RATE 16 resp/min; METHEMOGLOBIN 1.3 % (0-1.5); MODE AC/VC; PCO2 51 mm Hg (35-45); PEEP 12 CM/H20; PO2 54 mm Hg (80-100); TIDAL VOLUME 500 ML; TOTAL RESP RATE 16 resp/min; pH 7.42 (7.35-7.45)
[2017-07-07 13:37] LABS: BASE EXCESS 7.4 mEq/L (-3 to +3); BICARBONATE 33.1 mEq/L (22-26)
[2017-07-07 18:19] LABS: HEMATOCRIT 35.3 % (36.0-46.0); HEMOGLOBIN 10.9 G/DL (11.9-15.5); MCV 94.6 FL (83-99)
[2017-07-07 21:42] LABS: HEMATOCRIT 34.5 % (36.0-46.0); HEMOGLOBIN 10.8 G/DL (11.9-15.5)
[2017-07-08] VITALS (23 sets, daily range): BP systolic 116–176; BP diastolic 68–97
[2017-07-08 04:37] LABS: BASOPHIL (%) 0.3 % (0-1); EOSINOPHIL (%) 0.4 % (0-5); HEMATOCRIT 33.9 % (36.0-46.0); HEMOGLOBIN 10.5 G/DL (11.9-15.5); IMMATURE GRANULOCYTE (%) 1.5 % (0.0-0.7); LYMPHOCYTE (%) 6.9 % (15-42); LYMPHOCYTE COUNT 0.7 K/uL (1.0-2.8); MCH 29.5 PG (29.0-34.0); MCV 95.2 FL (83-99); MONOCYTE COUNT 0.5 K/uL (0-0.8); NEUTROPHIL (%) 85.9 % (45-76); PLATELET COUNT 183 K/uL (156-360); RBC DIS.WIDTH-CV 16.3 % (11.8-14.6); RBC DIS.WIDTH-SD 57.4 % (39-53); RED BLOOD COUNT 3.56 M/uL (3.80-5.20); WHITE BLOOD COUNT 10.5 K/uL (4.1-10.2)
[2017-07-08 06:31] LABS: ALBUMIN 3.1 g/dL (3.2-4.8); CHLORIDE 105 mEq/L (99-109); POTASSIUM 4.6 mEq/L (3.7-5.4); SODIUM 141 mEq/L (136-147)
[2017-07-08 06:33] LABS: GLUCOSE 194 mg/dL (70-99); TOTAL PROTEIN 5.4 g/dL (6.4-8.3)
[2017-07-08 06:37] LABS: ALKALINE PHOSPHATASE 67 IU/L (3-129); CREATININE 0.7 mg/dL (0.6-1.3); GFR ESTIMATE (CALCULATED) > 59 mL/min/; PHOSPHORUS 3.6 mg/dL (2.5-4.9)
[2017-07-08 06:38] LABS: AST (GOT) 22 IU/L (2-34); UREA NITROGEN (BUN) 13 mg/dL (9-23)
[2017-07-08 06:40] LABS: ALT (GPT) 39 IU/L (3-49)
[2017-07-08 06:49] LABS: TOTAL BILIRUBIN 0.4 mg/dL (0.0-1.0)
[2017-07-09] VITALS (20 sets, daily range): BP systolic 125–161; BP diastolic 67–92
[2017-07-09 06:00] LABS: HEMOGLOBIN 10.1 G/DL (11.9-15.5); MCH 29.2 PG (29.0-34.0); MCHC 30.6 G/DL (30.0-36.0); MCV 95.4 FL (83-99); PLATELET COUNT 157 K/uL (156-360); RBC DIS.WIDTH-CV 16.4 % (11.8-14.6); RBC DIS.WIDTH-SD 57.6 % (39-53); RED BLOOD COUNT 3.46 M/uL (3.80-5.20); WHITE BLOOD COUNT 10.4 K/uL (4.1-10.2)
[2017-07-09 06:25] LABS: CHLORIDE 103 MEQ/L (99-109); CREATININE 0.5 MG/DL (0.6-1.3); GFR ESTIMATE (CALCULATED) > 59 mL/min/; GLUCOSE 217 mg/dL (70-99); MAGNESIUM 1.9 mg/dl (1.3-2.7); PHOSPHORUS 3.4 mg/dL (2.5-4.9); POTASSIUM 4.2 MEQ/L (3.7-5.4); SODIUM 141 MEQ/L (136-147); UREA NITROGEN (BUN) 14 mg/dL (9-23)
[2017-07-09 18:48] LABS: CHLORIDE 100 MEQ/L (99-109); CREATININE 0.6 MG/DL (0.6-1.3); GFR ESTIMATE (CALCULATED) > 59 mL/min/; GLUCOSE 246 mg/dL (70-99); POTASSIUM 3.9 MEQ/L (3.7-5.4); SODIUM 137 MEQ/L (136-147); UREA NITROGEN (BUN) 17 mg/dL (9-23)
[2017-07-10] VITALS (23 sets, daily range): BP systolic 113–196; BP diastolic 72–114
[2017-07-10 01:07] LABS: BASE EXCESS 6.7 mEq/L (-3 to +3); BICARBONATE 34.2 mEq/L (22-26); CARBOXY HGB 1.7 % (0-5); COMMENTS - BLOOD GASES A+C+; DEVICE VENT; FI02 100 %; METHEMOGLOBIN 0.8 % (0-1.5); PCO2 62 mm Hg (35-45); PO2 56 mm Hg (80-100); SITE RR; pH 7.35 (7.35-7.45)
[2017-07-10 01:08] LABS: MECHANICAL RATE 20 resp/min; MODE AC/VC; PEEP 14 CM/H20; TIDAL VOLUME 500 ML; TOTAL RESP RATE 20 resp/min
[2017-07-10 06:21] LABS: HEMATOCRIT 34.2 % (36.0-46.0); HEMOGLOBIN 10.6 G/DL (11.9-15.5); MCH 29.2 PG (29.0-34.0); MCV 94.2 FL (83-99); PLATELET COUNT 169 K/uL (156-360); RBC DIS.WIDTH-SD 55.7 % (39-53); RED BLOOD COUNT 3.63 M/uL (3.80-5.20); WHITE BLOOD COUNT 8.6 K/uL (4.1-10.2)
[2017-07-10 06:27] LABS: INTER. NORMALIZED RATIO 1.2
[2017-07-10 06:29] LABS: PTT 57.2 SEC (25-37)
[2017-07-10 08:11] LABS: CHLORIDE 99 MEQ/L (99-109); CREATININE 0.6 MG/DL (0.6-1.3); GFR ESTIMATE (CALCULATED) > 59 mL/min/; GLUCOSE 337 mg/dL (70-99); SODIUM 139 MEQ/L (136-147); UREA NITROGEN (BUN) 19 mg/dL (9-23)
[2017-07-11] VITALS (19 sets, daily range): BP systolic 103–172; BP diastolic 61–108
[2017-07-11 05:26] LABS: BASOPHIL (%) 0.7 % (0-1); BASOPHIL COUNT 0.1 K/uL (0-0.1); EOSINOPHIL (%) 0.7 % (0-5); EOSINOPHIL COUNT 0.1 K/uL (0-0.3); HEMATOCRIT 36.6 % (36.0-46.0); HEMOGLOBIN 11.5 G/DL (11.9-15.5); IMMATURE GRANULOCYTE (%) 3.7 % (0.0-0.7); LYMPHOCYTE (%) 13.8 % (15-42); LYMPHOCYTE COUNT 1.7 K/uL (1.0-2.8); MCH 28.6 PG (29.0-34.0); MCHC 31.4 G/DL (30.0-36.0); MONOCYTE (%) 6.9 % (3-12); MONOCYTE COUNT 0.8 K/uL (0-0.8); NEUTROPHIL (%) 74.2 % (45-76); NEUTROPHIL COUNT 8.9 K/uL (1.8-6.4); PLATELET COUNT 205 K/uL (156-360); RBC DIS.WIDTH-CV 16.3 % (11.8-14.6); RBC DIS.WIDTH-SD 54.4 % (39-53); RED BLOOD COUNT 4.02 M/uL (3.80-5.20)
[2017-07-11 07:06] LABS: ALBUMIN 2.9 G/DL (3.2-4.8); ALKALINE PHOSPHATASE 59 IU/L (3-129); ALT (GPT) 24 IU/L (3-49); AST (GOT) 11 IU/L (2-34); CHLORIDE 98 MEQ/L (99-109); CREATININE 0.7 MG/DL (0.6-1.3); GFR ESTIMATE (CALCULATED) > 59 mL/min/; GLUCOSE 182 mg/dL (70-99); MAGNESIUM 1.8 mg/dl (1.3-2.7); PHOSPHORUS 3.4 mg/dL (2.5-4.9); POTASSIUM 3.5 MEQ/L (3.7-5.4); SODIUM 138 MEQ/L (136-147); TOTAL BILIRUBIN 0.4 MG/DL (0.0-1.0); TOTAL PROTEIN 5.6 G/DL (6.4-8.3); UREA NITROGEN (BUN) 22 mg/dL (9-23)
[2017-07-11 09:22] LABS: CREATINE KINASE 194 IU/L (1-294); HDL CHOLESTEROL 32 MG/DL (Desirable>=50); LDL CHOLESTEROL 123 mg/dL (Desirable<100); NON-HDL CHOLESTEROL 196 mg/dL (Desirable<160); TOTAL CHOLESTEROL 228 mg/dL (Desirable<200); TRIGLYCERIDES 365 MG/DL (Normal: <150)
[2017-07-11 10:50] LABS: BASE EXCESS 11.2 mEq/L (-3 to +3); BICARBONATE 32.6 mEq/L (22-26); CARBOXY HGB 1.6 % (0-5); METHEMOGLOBIN 1.7 % (0-1.5); PO2 54 mm Hg (80-100)
[2017-07-11 10:53] LABS: PCO2 31 mm Hg (35-45); pH 7.63 (7.35-7.45)
[2017-07-11 10:54] LABS: COMMENTS - BLOOD GASES A+C+; DEVICE VENT; FI02 100 %; MECHANICAL RATE 30 resp/min; MODE AC/VC; PEEP 22 CM/H20; SITE LR; TIDAL VOLUME 600 ML; TOTAL RESP RATE 30 resp/min
[2017-07-12] VITALS (24 sets, daily range): BP systolic 92–151; BP diastolic 56–85
[2017-07-12 04:47] LABS: BASOPHIL (%) 0.7 % (0-1); BASOPHIL COUNT 0.1 K/uL (0-0.1); EOSINOPHIL (%) 1.7 % (0-5); EOSINOPHIL COUNT 0.2 K/uL (0-0.3); HEMOGLOBIN 11.8 G/DL (11.9-15.5); IMMATURE GRANULOCYTE (%) 3.8 % (0.0-0.7); LYMPHOCYTE (%) 14.5 % (15-42); LYMPHOCYTE COUNT 1.9 K/uL (1.0-2.8); MCH 29.5 PG (29.0-34.0); MCHC 32.8 G/DL (30.0-36.0); MONOCYTE (%) 7.7 % (3-12); NEUTROPHIL (%) 71.6 % (45-76); NEUTROPHIL COUNT 9.5 K/uL (1.8-6.4); PLATELET COUNT 188 K/uL (156-360); RBC DIS.WIDTH-CV 16.5 % (11.8-14.6); RBC DIS.WIDTH-SD 54.4 % (39-53); WHITE BLOOD COUNT 13.3 K/uL (4.1-10.2)
[2017-07-12 04:56] LABS: CHLORIDE 102 mEq/L (99-109); POTASSIUM 3.5 mEq/L (3.7-5.4); SODIUM 141 mEq/L (136-147)
[2017-07-12 04:59] LABS: GLUCOSE 97 mg/dL (70-99); TOTAL PROTEIN 5.4 g/dL (6.4-8.3)
[2017-07-12 05:02] LABS: ALKALINE PHOSPHATASE 67 IU/L (3-129); CREATININE 0.8 mg/dL (0.6-1.3); GFR ESTIMATE (CALCULATED) > 59 mL/min/; PHOSPHORUS 3.9 mg/dL (2.5-4.9)
[2017-07-12 05:03] LABS: UREA NITROGEN (BUN) 25 mg/dL (9-23)
[2017-07-12 05:04] LABS: AST (GOT) 17 IU/L (2-34); TOTAL BILIRUBIN 0.7 mg/dL (0.0-1.0)
[2017-07-12 05:05] LABS: ALT (GPT) 23 IU/L (3-49)
[2017-07-12 06:15] LABS: BASE EXCESS 7.4 mEq/L (-3 to +3); BICARBONATE 27.5 mEq/L (22-26); CARBOXY HGB 2.2 % (0-5); METHEMOGLOBIN 0.9 % (0-1.5)
[2017-07-12 06:17] LABS: COMMENTS - BLOOD GASES C+; DEVICE VENT; PCO2 25 mm Hg (35-45); PO2 65 mm Hg (80-100); SITE LR; pH 7.65 (7.35-7.45)
[2017-07-12 06:18] LABS: FI02 100 %; MECHANICAL RATE 30 resp/min; MODE BILEVEL 40/20; PRESSURE CONTROL VENTILATION 40 CM H20; TOTAL RESP RATE 30 resp/min
[2017-07-13] VITALS (24 sets, daily range): BP systolic 93–165; BP diastolic 52–87
[2017-07-13 05:30] LABS: BASE EXCESS 2.8 mEq/L (-3 to +3); BICARBONATE 25.7 mEq/L (22-26); CARBOXY HGB 1.7 % (0-5); COMMENTS - BLOOD GASES NA.C+; METHEMOGLOBIN 1.3 % (0-1.5); PCO2 33 mm Hg (35-45); PO2 75 mm Hg (80-100); SITE LR
[2017-07-13 05:31] LABS: DEVICE 980; MECHANICAL RATE 25 resp/min; MODE BILEVEL 38/20; PEEP 20 CM/H20; PRESSURE CONTROL VENTILATION 38 CM H20; TOTAL RESP RATE 25 resp/min
[2017-07-13 06:33] LABS: BASOPHIL (%) 0.7 % (0-1); BASOPHIL COUNT 0.1 K/uL (0-0.1); EOSINOPHIL (%) 1.3 % (0-5); EOSINOPHIL COUNT 0.2 K/uL (0-0.3); HEMATOCRIT 35.4 % (36.0-46.0); IMMATURE GRANULOCYTE (%) 3.3 % (0.0-0.7); LYMPHOCYTE COUNT 1.4 K/uL (1.0-2.8); MCH 28.6 PG (29.0-34.0); MCHC 31.1 G/DL (30.0-36.0); MCV 92.2 FL (83-99); MONOCYTE (%) 6.5 % (3-12); MONOCYTE COUNT 0.9 K/uL (0-0.8); NEUTROPHIL (%) 78.2 % (45-76); NEUTROPHIL COUNT 10.6 K/uL (1.8-6.4); PLATELET COUNT 177 K/uL (156-360); RBC DIS.WIDTH-CV 16.8 % (11.8-14.6); RBC DIS.WIDTH-SD 56.6 % (39-53); RED BLOOD COUNT 3.84 M/uL (3.80-5.20); WHITE BLOOD COUNT 13.6 K/uL (4.1-10.2)
[2017-07-13 06:58] LABS: ALBUMIN 2.6 G/DL (3.2-4.8); ALKALINE PHOSPHATASE 80 IU/L (3-129); ALT (GPT) 24 IU/L (3-49); CHLORIDE 101 MEQ/L (99-109); GFR ESTIMATE (CALCULATED) > 59 mL/min/; POTASSIUM 3.7 MEQ/L (3.7-5.4); SODIUM 139 MEQ/L (136-147); TOTAL PROTEIN 5.4 G/DL (6.4-8.3); UREA NITROGEN (BUN) 24 mg/dL (9-23)
[2017-07-13 07:01] LABS: AST (GOT) 19 IU/L (2-34); GLUCOSE 162 mg/dL (70-99); TOTAL BILIRUBIN 0.9 MG/DL (0.0-1.0)
[2017-07-13 11:16] LABS: BASE EXCESS 1.1 mEq/L (-3 to +3); BICARBONATE 23.1 mEq/L (22-26); CARBOXY HGB 2.1 % (0-5); METHEMOGLOBIN 1.4 % (0-1.5); PCO2 29 mm Hg (35-45); pH 7.51 (7.35-7.45)
[2017-07-13 11:17] LABS: COMMENTS - BLOOD GASES A+C+; DEVICE VENT; FI02 100 %; MECHANICAL RATE 17 resp/min; MODE BILEVEL; PO2 57 mm Hg (80-100); SITE RRADIAL; TOTAL RESP RATE 17 resp/min
[2017-07-13 11:18] LABS: CONTINUOUS POS AIRWAY PRESSURE 0 cm H2O; PEEP 34 CM/H20; PRES. SUPPORT 5 CM/H2O
[2017-07-13 11:42] LABS: APPEARANCE CLOUDY ((CLEAR)); BILIRUBIN NEGATIVE; BLOOD NEGATIVE; COLOR AMBER ((YELLOW)); GLUCOSE (STRIP) NEGATIVE; KETONES 5; LEUKOCYTES MODERATE; NITRITE NEGATIVE; PROTEIN (STRIP) NEGATIVE; SPECIFIC GRAVITY 1.018 (1.000-1.030); UROBILINOGEN 0.2 MG/DL (0.2-1.0)
[2017-07-13 13:40] LABS: RED BLOOD CELLS 0-5 /HPF (0-5)
[2017-07-13 13:41] LABS: BACTERIA 2+ /HPF; EPITHELIAL CELLS 1+ /HPF; MUCUS NONE SEEN /LPF; OTHER YEAST W/HYPHAE
[2017-07-13 16:28] LABS: BICARBONATE 26.5 mEq/L (22-26); PCO2 39 mm Hg (35-45); PO2 51 mm Hg (80-100); SITE LR; pH 7.44 (7.35-7.45)
[2017-07-13 16:29] LABS: COMMENTS - BLOOD GASES C+; DEVICE VENT; FI02 100 %; MECHANICAL RATE 13 resp/min; MODE BILEVEL PS; TOTAL RESP RATE 19 resp/min
[2017-07-13 16:31] LABS: PRESSURE CONTROL VENTILATION 34 CM H20
[2017-07-13 16:32] LABS: PEEP 0 CM/H20; PRES. SUPPORT 5 CM/H2O
[2017-07-14] VITALS (24 sets, daily range): BP systolic 99–155; BP diastolic 61–93
[2017-07-14 05:47] LABS: BICARBONATE 25.3 mEq/L (22-26); CARBOXY HGB 1.5 % (0-5); METHEMOGLOBIN 1.1 % (0-1.5); PCO2 34 mm Hg (35-45); PO2 70 mm Hg (80-100); SITE LR; pH 7.48 (7.35-7.45)
[2017-07-14 05:48] LABS: DEVICE 980; FI02 100 %; INSPIRATORY/EXPIRATORY RATIO 6.64:1.0 RATIO; MECHANICAL RATE 13 resp/min; MODE BILEVEL; PEEP 0 CM/H20; PRES. SUPPORT 5 CM/H2O; PRESSURE CONTROL VENTILATION 34 CM H20; TOTAL RESP RATE 13 resp/min
[2017-07-14 08:13] LABS: BASOPHIL (%) 0.3 % (0-1); EOSINOPHIL (%) 0 % (0-5); HEMATOCRIT 32.9 % (36.0-46.0); HEMOGLOBIN 10.4 G/DL (11.9-15.5); IMMATURE GRANULOCYTE (%) 3.1 % (0.0-0.7); LYMPHOCYTE (%) 6.8 % (15-42); LYMPHOCYTE COUNT 0.8 K/uL (1.0-2.8); MCH 29.4 PG (29.0-34.0); MCHC 31.6 G/DL (30.0-36.0); MCV 92.9 FL (83-99); MONOCYTE (%) 3.9 % (3-12); MONOCYTE COUNT 0.5 K/uL (0-0.8); NEUTROPHIL (%) 85.9 % (45-76); PLATELET COUNT 182 K/uL (156-360); RBC DIS.WIDTH-CV 16.6 % (11.8-14.6); RED BLOOD COUNT 3.54 M/uL (3.80-5.20); WHITE BLOOD COUNT 11.7 K/uL (4.1-10.2)
[2017-07-14 09:03] LABS: CHLORIDE 100 MEQ/L (99-109); CREATININE 0.8 MG/DL (0.6-1.3); GFR ESTIMATE (CALCULATED) > 59 mL/min/; GLUCOSE 235 mg/dL (70-99); PHOSPHORUS 4.5 mg/dL (2.5-4.9); POTASSIUM 4.2 MEQ/L (3.7-5.4); SODIUM 138 MEQ/L (136-147); UREA NITROGEN (BUN) 31 mg/dL (9-23)
[2017-07-14 09:08] LABS: MAGNESIUM 2.2 mg/dl (1.3-2.7)
[2017-07-15] VITALS (23 sets, daily range): BP systolic 103–169; BP diastolic 59–112
[2017-07-15 07:32] LABS: BASOPHIL (%) 0.2 % (0-1); EOSINOPHIL (%) 0.1 % (0-5); HEMATOCRIT 32.9 % (36.0-46.0); HEMOGLOBIN 10.4 G/DL (11.9-15.5); LYMPHOCYTE (%) 6.9 % (15-42); LYMPHOCYTE COUNT 0.8 K/uL (1.0-2.8); MCH 29.2 PG (29.0-34.0); MCHC 31.6 G/DL (30.0-36.0); MCV 92.4 FL (83-99); MONOCYTE (%) 4.9 % (3-12); MONOCYTE COUNT 0.6 K/uL (0-0.8); NEUTROPHIL (%) 85.9 % (45-76); NEUTROPHIL COUNT 9.7 K/uL (1.8-6.4); PLATELET COUNT 218 K/uL (156-360); RBC DIS.WIDTH-CV 16.2 % (11.8-14.6); RBC DIS.WIDTH-SD 54.7 % (39-53); RED BLOOD COUNT 3.56 M/uL (3.80-5.20); WHITE BLOOD COUNT 11.2 K/uL (4.1-10.2)
[2017-07-15 10:07] LABS: CHLORIDE 100 MEQ/L (99-109); CREATININE 0.8 MG/DL (0.6-1.3); GFR ESTIMATE (CALCULATED) > 59 mL/min/; GLUCOSE 244 mg/dL (70-99); MAGNESIUM 2.2 mg/dl (1.3-2.7); PHOSPHORUS 2.8 mg/dL (2.5-4.9); POTASSIUM 3.4 MEQ/L (3.7-5.4); SODIUM 141 MEQ/L (136-147); UREA NITROGEN (BUN) 38 mg/dL (9-23)
[2017-07-15 10:20] LABS: COMMENTS - BLOOD GASES A+C+; DEVICE VENT; FI02 100 %; MECHANICAL RATE 13 resp/min; MODE BILEVEL; PRESSURE CONTROL VENTILATION 34 CM H20; SITE LR; TOTAL RESP RATE 13 resp/min
[2017-07-15 10:21] LABS: INSPIRATION TIME 6.64 seconds; INSPIRATORY/EXPIRATORY RATIO 6.8:1 RATIO; PCO2 35 mm Hg (35-45); PEEP 0 CM/H20; PO2 63 mm Hg (80-100); pH 7.52 (7.35-7.45)
[2017-07-15 10:22] LABS: BASE EXCESS 5.6 mEq/L (-3 to +3); BICARBONATE 28.6 mEq/L (22-26); CARBOXY HGB 1.4 % (0-5); METHEMOGLOBIN 1.3 % (0-1.5)
[2017-07-15 13:32] LABS: BASE EXCESS 4.4 mEq/L (-3 to +3); BICARBONATE 28.4 mEq/L (22-26); CARBOXY HGB 1.7 % (0-5); COMMENTS - BLOOD GASES A+C+; DEVICE VENT; FI02 100 %; METHEMOGLOBIN 1.6 % (0-1.5); MODE BILEVEL; PCO2 39 mm Hg (35-45); PO2 64 mm Hg (80-100); SITE LR; pH 7.47 (7.35-7.45)
[2017-07-15 13:33] LABS: MECHANICAL RATE 13 resp/min; PRES. SUPPORT 5 CM/H2O; PRESSURE CONTROL VENTILATION 38 CM H20; TOTAL RESP RATE 15 resp/min
[2017-07-15 13:34] LABS: PRES. SUPPORT 5 CM/H2O
[2017-07-15 18:22] LABS: BASE EXCESS 6.5 mEq/L (-3 to +3); BICARBONATE 29.1 mEq/L (22-26); CARBOXY HGB 1.9 % (0-5); METHEMOGLOBIN 1.3 % (0-1.5); PCO2 34 mm Hg (35-45); PO2 71 mm Hg (80-100); SITE LR; pH 7.54 (7.35-7.45)
[2017-07-15 18:23] LABS: COMMENTS - BLOOD GASES A+C+; DEVICE VENT; FI02 100 %; MECHANICAL RATE 13 resp/min; MODE BILEVEL; PRES. SUPPORT 5 CM/H2O; PRESSURE CONTROL VENTILATION 38 CM H20; TOTAL RESP RATE 13 resp/min
[2017-07-16] VITALS (23 sets, daily range): BP systolic 11–143; BP diastolic 66–94
[2017-07-16 06:21] LABS: BASOPHIL (%) 0.2 % (0-1); EOSINOPHIL (%) 0 % (0-5); HEMATOCRIT 34.1 % (36.0-46.0); HEMOGLOBIN 10.8 G/DL (11.9-15.5); LYMPHOCYTE COUNT 0.8 K/uL (1.0-2.8); MCHC 31.7 G/DL (30.0-36.0); MCV 91.7 FL (83-99); MONOCYTE (%) 6.4 % (3-12); MONOCYTE COUNT 0.8 K/uL (0-0.8); NEUTROPHIL (%) 84.4 % (45-76); NEUTROPHIL COUNT 10.1 K/uL (1.8-6.4); PLATELET COUNT 216 K/uL (156-360); RBC DIS.WIDTH-CV 16.4 % (11.8-14.6); RBC DIS.WIDTH-SD 54.8 % (39-53); RED BLOOD COUNT 3.72 M/uL (3.80-5.20)
[2017-07-16 06:45] LABS: CHLORIDE 98 MEQ/L (99-109); CREATININE 0.9 MG/DL (0.6-1.3); GFR ESTIMATE (CALCULATED) > 59 mL/min/; GLUCOSE 297 mg/dL (70-99); MAGNESIUM 2.2 mg/dl (1.3-2.7); PHOSPHORUS 3.3 mg/dL (2.5-4.9); POTASSIUM 3.7 MEQ/L (3.7-5.4); SODIUM 139 MEQ/L (136-147); UREA NITROGEN (BUN) 51 mg/dL (9-23); VANCOMYCIN, TROUGH 15.1 MCG/ML (10-20)
[2017-07-16 18:08] LABS: BASE EXCESS 6.1 mEq/L (-3 to +3); BICARBONATE 29.6 mEq/L (22-26); CARBOXY HGB 1.6 % (0-5); METHEMOGLOBIN 1.5 % (0-1.5); PCO2 38 mm Hg (35-45); PO2 79 mm Hg (80-100)
[2017-07-16 18:09] LABS: COMMENTS - BLOOD GASES A+C+; DEVICE VENT; FI02 100 %; MECHANICAL RATE 13 resp/min; MODE BILEVEL; SITE LR; TOTAL RESP RATE 13 resp/min
[2017-07-16 18:10] LABS: PRES. SUPPORT 5 CM/H2O; PRESSURE CONTROL VENTILATION 38 CM H20
[2017-07-17] VITALS (24 sets, daily range): BP systolic 85–159; BP diastolic 54–98
[2017-07-17 06:12] LABS: BASOPHIL (%) 0.2 % (0-1); EOSINOPHIL (%) 0.1 % (0-5); HEMATOCRIT 33.8 % (36.0-46.0); HEMOGLOBIN 10.8 G/DL (11.9-15.5); IMMATURE GRANULOCYTE (%) 1.7 % (0.0-0.7); LYMPHOCYTE (%) 5.8 % (15-42); LYMPHOCYTE COUNT 0.7 K/uL (1.0-2.8); MCH 29.3 PG (29.0-34.0); MCV 91.6 FL (83-99); MONOCYTE COUNT 0.6 K/uL (0-0.8); NEUTROPHIL (%) 87.2 % (45-76); NEUTROPHIL COUNT 10.7 K/uL (1.8-6.4); PLATELET COUNT 214 K/uL (156-360); RBC DIS.WIDTH-CV 16.5 % (11.8-14.6); RBC DIS.WIDTH-SD 55.3 % (39-53); RED BLOOD COUNT 3.69 M/uL (3.80-5.20); WHITE BLOOD COUNT 12.3 K/uL (4.1-10.2)
[2017-07-17 07:39] LABS: CHLORIDE 101 MEQ/L (99-109); CREATININE 0.9 MG/DL (0.6-1.3); GFR ESTIMATE (CALCULATED) > 59 mL/min/; GLUCOSE 360 mg/dL (70-99); MAGNESIUM 2.3 mg/dl (1.3-2.7); PHOSPHORUS 3.7 mg/dL (2.5-4.9); POTASSIUM 4.5 MEQ/L (3.7-5.4); SODIUM 142 MEQ/L (136-147); UREA NITROGEN (BUN) 60 mg/dL (9-23)
[2017-07-18] VITALS (11 sets, daily range): BP systolic 78–148; BP diastolic 49–92
[2017-07-18 02:07] LABS: INTER. NORMALIZED RATIO 1.6
[2017-07-18 02:10] LABS: PTT 107.2 SEC (25-37)
[2017-07-18 05:34] LABS: BASE EXCESS 7.2 mEq/L (-3 to +3); BICARBONATE 29.5 mEq/L (22-26); CARBOXY HGB 1.2 % (0-5); COMMENTS - BLOOD GASES C+A+; DEVICE VENT; FI02 85 %; MECHANICAL RATE 13 resp/min; METHEMOGLOBIN 1.3 % (0-1.5); MODE BILEVEL; PCO2 33 mm Hg (35-45); PO2 252 mm Hg (80-100); PRESSURE CONTROL VENTILATION 36 CM H20; SITE RR; TOTAL RESP RATE 13 resp/min
[2017-07-18 05:35] LABS: PEEP 0 CM/H20; PRES. SUPPORT 5 CM/H2O
[2017-07-18 05:36] LABS: pH 7.56 (7.35-7.45)
[2017-07-18 06:02] LABS: BASOPHIL (%) 0.2 % (0-1); EOSINOPHIL (%) 0.2 % (0-5); HEMATOCRIT 34.2 % (36.0-46.0); IMMATURE GRANULOCYTE (%) 1.4 % (0.0-0.7); LYMPHOCYTE (%) 7.3 % (15-42); MCH 29.3 PG (29.0-34.0); MCHC 32.2 G/DL (30.0-36.0); MCV 91.2 FL (83-99); MONOCYTE (%) 5.3 % (3-12); MONOCYTE COUNT 0.7 K/uL (0-0.8); NEUTROPHIL (%) 85.6 % (45-76); NEUTROPHIL COUNT 11.3 K/uL (1.8-6.4); NRBC (%) 0.2 /100 WBC (0-0); RBC DIS.WIDTH-CV 16.4 % (11.8-14.6); RBC DIS.WIDTH-SD 54.2 % (39-53); RED BLOOD COUNT 3.75 M/uL (3.80-5.20); WHITE BLOOD COUNT 13.2 K/uL (4.1-10.2)
[2017-07-18 06:07] LABS: CHLORIDE 101 MEQ/L (99-109); CREATININE 1.1 MG/DL (0.6-1.3); GFR ESTIMATE (CALCULATED) 55 mL/min/; GLUCOSE 304 mg/dL (70-99); MAGNESIUM 2.5 mg/dl (1.3-2.7); PHOSPHORUS 4.4 mg/dL (2.5-4.9); POTASSIUM 5.4 MEQ/L (3.7-5.4); SODIUM 141 MEQ/L (136-147); UREA NITROGEN (BUN) 76 mg/dL (9-23)
[2017-07-18 06:25] LABS: PLATELET CLUMPS PRESENT - PLATELET COUNTS APPEARS DECREASED
[2017-07-18 06:30] LABS: PLATELET COUNT UNABLE TO REPORT K/uL (156-360)
[2017-07-18 09:01] LABS: INTER. NORMALIZED RATIO 1.6
[2017-07-18 09:04] LABS: PTT 103.2 SEC (25-37)
[2017-07-18 10:57] LABS: BASE EXCESS 6.6 mEq/L (-3 to +3); BICARBONATE 30.5 mEq/L (22-26); CARBOXY HGB 1.6 % (0-5); DEVICE VENT; FI02 100 %; MECHANICAL RATE 13 resp/min; METHEMOGLOBIN 1.5 % (0-1.5); MODE BILEVEL; O2 FLOW 50 L/MIN; PCO2 40 mm Hg (35-45); PO2 48 mm Hg (80-100); PRES. SUPPORT 5 CM/H2O; SITE R ALINE; TOTAL RESP RATE 13 resp/min; pH 7.49 (7.35-7.45)
[2017-07-18 11:44] LABS: BASE EXCESS 6.7 mEq/L (-3 to +3); BICARBONATE 31.3 mEq/L (22-26); METHEMOGLOBIN 1.4 % (0-1.5); PCO2 44 mm Hg (35-45); PO2 55 mm Hg (80-100); pH 7.46 (7.35-7.45)
[2017-07-18 11:45] LABS: DEVICE 980; FI02 100 %; MECHANICAL RATE 13 resp/min; MODE BILEVEL; SITE ALINE; TOTAL RESP RATE 13 resp/min
[2017-07-18 13:02] LABS: PEEP 0 CM/H20; PRESSURE CONTROL VENTILATION 36 CM H20
[2017-07-18 13:03] LABS: PEEP 0 CM/H20; PRESSURE CONTROL VENTILATION 40 CM H20
[2017-07-18 15:30] LABS: BASE EXCESS 5.7 mEq/L (-3 to +3); BICARBONATE 28.4 mEq/L (22-26); CARBOXY HGB 1.3 % (0-5); METHEMOGLOBIN 1.4 % (0-1.5); pH 7.53 (7.35-7.45)
[2017-07-18 15:31] LABS: COMMENTS - BLOOD GASES C+; DEVICE VENT; FI02 100 %; MECHANICAL RATE 13 resp/min; MODE A/C BILEVEL; PCO2 34 mm Hg (35-45); PO2 217 mm Hg (80-100); PRES. SUPPORT 5 CM/H2O; SITE A LINE; TOTAL RESP RATE 13 resp/min
[2017-07-18 15:32] LABS: PEEP 45 CM/H20
[2017-07-18 20:24] LABS: CHLORIDE 99 MEQ/L (99-109); POTASSIUM 4.8 MEQ/L (3.7-5.4); SODIUM 140 MEQ/L (136-147)
[2017-07-18 20:31] LABS: CREATININE 1.2 MG/DL (0.6-1.3); GFR ESTIMATE (CALCULATED) 50 mL/min/; PHOSPHORUS 5.6 mg/dL (2.5-4.9); UREA NITROGEN (BUN) 90 mg/dL (9-23)
[2017-07-18 20:44] LABS: GLUCOSE 431 mg/dL (70-99)
[2017-07-19 00:02] VITALS: BP 109/76
[2017-07-19 00:50] LABS: CHLORIDE 101 mEq/L (99-109); POTASSIUM 4.3 mEq/L (3.7-5.4); SODIUM 142 mEq/L (136-147)
[2017-07-19 00:52] LABS: GLUCOSE 345 mg/dL (70-99)
[2017-07-19 00:56] LABS: CREATININE 1.6 mg/dL (0.6-1.3); GFR ESTIMATE (CALCULATED) 36 mL/min/; PHOSPHORUS 5.1 mg/dL (2.5-4.9)
[2017-07-19 00:57] LABS: UREA NITROGEN (BUN) 94 mg/dL (9-23)
[2017-07-19 01:01] VITALS: BP 128/88
[2017-07-19 02:01] VITALS: BP 128/81
[2017-07-19 03:01] VITALS: BP 124/83
[2017-07-19 04:01] VITALS: BP 105/76
[2017-07-19 04:26] LABS: HEMATOCRIT 38.9 % (36.0-46.0); HEMOGLOBIN 12.3 G/DL (11.9-15.5); MCH 29.6 PG (29.0-34.0); MCHC 31.6 G/DL (30.0-36.0); MCV 93.5 FL (83-99); NRBC (%) 0.6 /100 WBC (0-0); PLATELET COUNT 327 K/uL (156-360); RBC DIS.WIDTH-CV 16.8 % (11.8-14.6); RBC DIS.WIDTH-SD 56.8 % (39-53); RED BLOOD COUNT 4.16 M/uL (3.80-5.20); WHITE BLOOD COUNT 19.4 K/uL (4.1-10.2)
[2017-07-19 04:37] LABS: CHLORIDE 103 mEq/L (99-109); POTASSIUM 4.4 mEq/L (3.7-5.4); SODIUM 143 mEq/L (136-147)
[2017-07-19 04:39] LABS: GLUCOSE 277 mg/dL (70-99)
[2017-07-19 04:43] LABS: CREATININE 1.6 mg/dL (0.6-1.3); GFR ESTIMATE (CALCULATED) 36 mL/min/
[2017-07-19 04:44] LABS: UREA NITROGEN (BUN) 95 mg/dL (9-23)
[2017-07-19 04:53] VITALS: BP 75/63
[2017-07-19 06:42] LABS: ABS NEUTROPHIL COUNT 14.2; ANISOCYTOSIS 1+; ATYPICAL LYMPHOCYTE 6.9 %; BAND NEUTROPHILS 0.9 % (0-8.0); EOSINOPHIL ABS CT 0.3; EOSINOPHILS 1.7 % (0-5.0); LYMPHOCYTES 13.9 % (15.0-45.0); MACROCYTES 1+; METAMYELOCYTES 0.9 %; MICROCYTOSIS 1+; MONOCYTES 2.6 % (0-9.0); MYELOCYTES 0.9 %; POLYCHROMASIA 1+; SEG.NEUTROPHILS 72.2 % (46.0-76.0)
== END 2017-07-19 12:05 | DRG 207 ==
LOC: EME → EDBD 21:19 → EME 21:19 → 5EAST 07-03 00:08 → EDLOC 07-03 00:08 → EDOF 07-03 00:08 → 4WEST 07-03 00:08 → ENRESERV 07-03 00:11 → 5EAST 07-03 04:38 → ENRESERV 07-03 11:02 → 5EAST 07-03 11:03 → 4WEST 07-03 11:04 → ENRESERV 07-03 11:08 → 4WEST 07-19 12:05
PROVIDERS: Emergency Medicine; Internal Medicine; Internal Medicine Cardiovascular Disease; Internal Medicine Critical Care Medicine; Internal Medicine Pulmonary Disease; Obstetrics & Gynecology; Specialist; Surgery
DX: J69.0 Pneumonitis due to inhalation of food and vomit (principal); N17.9 Acute kidney failure, unspecified; J96.21 Acute and chronic respiratory failure with hypoxia; J96.22 Acute and chronic respiratory failure with hypercapnia; I13.0 Hypertensive heart and chronic kidney disease with heart failure and stage 1 through stage 4 chronic kidney disease, or unspecified chronic kidney disease; E66.01 Morbid (severe) obesity due to excess calories; I50.30 Unspecified diastolic (congestive) heart failure; G89.29 Other chronic pain; G47.33 Obstructive sleep apnea (adult) (pediatric); J98.11 Atelectasis; E87.2 Acidosis; T17.990A Other foreign object in respiratory tract, part unspecified in causing asphyxiation, initial encounter; I49.01 Ventricular fibrillation; G89.4 Chronic pain syndrome; I25.10 Atherosclerotic heart disease of native coronary artery without angina pectoris; F11.20 Opioid dependence, uncomplicated; S72.012A Unspecified intracapsular fracture of left femur, initial encounter for closed fracture; E66.2 Morbid (severe) obesity with alveolar hypoventilation; E11.65 Type 2 diabetes mellitus with hyperglycemia; E11.22 Type 2 diabetes mellitus with diabetic chronic kidney disease; I27.20 Pulmonary hypertension, unspecified; I46.9 Cardiac arrest, cause unspecified; R04.2 Hemoptysis; I50.32 Chronic diastolic (congestive) heart failure; Z66 Do not resuscitate; I82.441 Acute embolism and thrombosis of right tibial vein; Z91.19 Patient's noncompliance with other medical treatment and regimen; Z68.45 Body mass index [BMI] 70 or greater, adult; Z99.81 Dependence on supplemental oxygen; Z74.01 Bed confinement status; Z79.891 Long term (current) use of opiate analgesic; Z87.891 Personal history of nicotine dependence; Z86.73 Personal history of transient ischemic attack (TIA), and cerebral infarction without residual deficits; N18.9 Chronic kidney disease, unspecified; Z87.442 Personal history of urinary calculi; M19.90 Unspecified osteoarthritis, unspecified site
CPT/HCPCS: 36600; 36620; 71045; 72020; 74018; 80048; 80048 91; 80053; 80061; 80202; 80361 90; 81003; 82550; 82550 91; 82803; 82948; 83605; 83690; 83735; 83880; 84100; 84145 90; 84478; 84484; 85014; 85018; 85025; 85025 91; 85027; 85610; 85730; 87040; 87070; 87077; 87086; 87106; 87147; 87186; 87205; 87449; 87502; 87641; 93005; 93306; 93321; 93325; 93970; 94002; 94003; 94640; 94640 76; 94668; 94760; 94799; 99202; 99281; 99285; C1751; C1788; C8923; J0360; J0456; J0696; J1644; J1815; J1940; J1956; J2020; J2060; J2185; J2250; J2543; J2704; J2765; J2920; J2930; J3370; J3480; J7030; J7040; J7050